=== PATIENT | female | born 1930 | race Caucasian/White ===

== ENCOUNTER 2017-11-09 19:21 | Observation (INO) | payer MEDICARE, BC ==
[2017-11-09] MEDS ORDERED: Sodium Chloride 0.9% 10 ML Syringe FLUSH PRN (19:38)
[2017-11-09] MEDS ORDERED: Ketorolac 30 MG/ML SDV IVPUSH ONE (19:38)
--- NOTE | 2017-11-09 19:38 | EDM.PDOC ---
ED HPI GENERAL MEDICAL PROBLEM - General Chief Complaint: Chest Pain Stated Complaint: [facility] Time Seen by Provider: 11/09/17 19:30 Source of Information: Reports: Patient, EMS, Old Records History Limitations: Reports: No Limitations - History of Present Illness INITIAL COMMENTS - FREE TEXT/NARRATIVE: 87 yo female was just sitting down for her evening meal when she developed anterior chest heaviness without any associated sx's. She then ate a good dinner and her pain was not changed so they called 911. She has had a pacemaker for many yrs, but no hx of CAD. EMS gave ASA 324 mg po and NTG x 2 SL with a reduction in her pain. Now it only hurts her if she moves or takes a full breath. Denies injury to her chest. Here with her . Is on warfarin and her INR about a week ago was 2.7 per her report. Seems more SOB with exertion than normal. Her reported late in her ER stay that he found her slumped over the counter, thinks she may have briefly passed out. Has had her pain since this event. Has a pHx of hiatal hernia repair. Onset: Today Onset Date: 11/09/17 Onset Time: 17:00 Duration: Hour(s): (2.5), Heavy Location: Reports: Chest Quality: Reports: Pressure Severity: Moderate Improves with: Reports: Medication Worsens with: Reports: Movement (and deep breathing) Context: Reports: Other (uncertain) Associated Symptoms: Reports: No Other Symptoms Treatments LADIES' HAT TRIMMER: Reports: Aspirin, IV/IO, Nitroglycerin Left Chest Pain Score (Numeric/FACES): 6 - Related Data Allergies Allergy/AdvReac Type Severity Reaction Status Date / Time morphine Allergy Cannot Verified 04/13/16 07:29 Remember Sulfa (Sulfonamide Allergy Rash Verified 04/13/16 07:29 Antibiotics) Home Meds: Home Meds Bumetanide [Bumex] 1 mg PO BID 11/02/12 [History] Lisinopril 20 mg PO BID 11/02/12 [History] Lovastatin 40 mg PO BEDTIME 11/02/12 [History] Warfarin Sodium [Jantoven] 2.5 mg PO ASDIRECTED 11/02/12 [History] Warfarin Sliding Scale [Coumadin Sliding Scale] 5 mg PO ASDIRECTED 02/26/14 [ History] Clobetasol [Clobetasol 0.05%] 1 dose TOP BID 03/25/15 [History] Cyanocobalamin (Vitamin B-12) [B-12] 1 tab PO DAILY 03/25/15 [History] Melatonin 1 tab PO BEDTIME 03/25/15 [History] Triamcinolone Acetonide [Triamcinolone Acetonide 0.1% Oint] 1 dose TOP BID 03/25 [History] Carvedilol 6.25 mg PO BID 01/28/16 [History] Past Medical History HEENT History: Reports: Cataract, Impaired Vision Cardiovascular History: Reports: Afib, Cardiomyopathy, Heart Failure, High Cholesterol, Hypertension, Pacemaker, Other (See Below) Other Cardiovascular History: mitral valve disorders Respiratory History: Reports: SOB, Other (See Below) Other Respiratory History: dyspnea with exertion. pulmonary hypertension. Gastrointestinal History: Reports: Chronic Diarrhea, Hiatal Hernia, Irritable Bowel Syndrome Genitourinary History: Reports: None MOLD SHAKER History: Reports: , Spontaneous Musculoskeletal History: Reports: Fracture, Gout, Osteoarthritis, Osteoporosis Psychiatric History: Reports: Panic Attack Endocrine/Metabolic History: Reports: Diabetes, Type II, Osteoporosis Hematologic History: Reports: Blood Transfusion(s) Oncologic (Cancer) History: Reports: Colon Dermatologic History: Reports: Eczema - Infectious Disease History Infectious Disease History: Reports: Chicken Pox, Measles, Mumps, Pertussis ( Whooping Cough) - Past Surgical History HEENT Surgical History: Reports: Cataract Surgery GI Surgical History: Reports: Appendectomy, Colon, Colonoscopy, EGD, Other (See Below) Female Surgical History: Reports: Section, D&C Musculoskeletal Surgical History: Reports: None Dermatological Surgical History: Reports: Skin Biopsy Social & Family History - Caffeine Use Caffeine Use: Reports: Coffee ED ROS GENERAL - Review of Systems Review Of Systems: See Below Constitutional: Reports: No Symptoms HEENT: Reports: No Symptoms Respiratory: Reports: No Symptoms Cardiovascular: Reports: Chest Pain Endocrine: Reports: No Symptoms GI/Abdominal: Reports: No Symptoms : Reports: No Symptoms Musculoskeletal: Reports: No Symptoms Skin: Reports: No Symptoms Neurological: Reports: No Symptoms ED EXAM, GENERAL - Physical Exam Exam: See Below Exam Limited By: No Limitations General Appearance: Alert, WD/WN, No Apparent Distress Eye Exam: Bilateral Eye: Normal Inspection Ears: Normal External Exam, Normal Canal, Hearing Grossly Normal Ear Exam: Bilateral Ear: Auricle Normal, Canal Normal Nose: Normal Inspection, Normal Mucosa, No Blood Throat/Mouth: Normal Inspection, Normal Lips, Normal Oropharynx, Normal Voice, No Airway Compromise Head: Atraumatic, Normocephalic Neck: Normal Inspection Respiratory/Chest: No Respiratory Distress, Lungs Clear, Normal Breath Sounds, No Accessory Muscle Use, Other (chest wall pain just to the left of the sternum) . No: Chest Non-Tender Cardiovascular: Regular Rate, Rhythm, No Edema GI/Abdominal: Normal Bowel Sounds, Soft, Non-Tender, No Distention Back Exam: Normal Inspection. No: CVA Tenderness (R), CVA Tenderness (L) Extremities: Normal Inspection, Normal Range of Motion, Non-Tender, No Pedal Edema Neurological: Alert, Oriented, CN II-XII Intact, Normal Cognition, No Motor/ Sensory Deficits Psychiatric: Normal Affect, Normal Mood Skin Exam: Warm, Dry, Intact, Normal Color, No Rash Lymphatic: No Adenopathy EKG INTERPRETATION EKG Date: 11/09/17 Time: 19:20 Rhythm: A-Flutter Rate (Beats/Min): 83 P-Wave: Absent ST-T: Normal Comparison: No Change Course - Vital Signs Last Recorded V/S: Last Vital Signs Temp 36.3 C 11/10/17 01:07 Pulse 70 11/10/17 01:26 Resp 18 11/10/17 01:26 BP 218/111 H 11/10/17 01:26 Pulse Ox 93 L 11/10/17 01:26 - Orders/Labs/Meds Orders: Active Orders 24 hr Category Date Time Status EKG Documentation Completion [RC] ASDIRECTED Care 11/09/17 20:28 Active Chest 1V Frontal [CR] Stat Exams 11/09/17 19:39 Taken Chest wo Cont [CT] Stat Exams 11/10/17 00:36 Taken Sodium Chloride 0.9% [Saline Flush] Med 11/09/17 19:38 Active 10 ml FLUSH ASDIRECTED PRN Saline Lock Insert [OM.PC] Routine Oth 11/09/17 19:38 Ordered EKG 12 Lead [EK] Routine Ther 11/09/17 20:28 Ordered Medication Orders Sodium Chloride (Saline Flush) 10 ml FLUSH ASDIRECTED PRN PRN Reason: Keep Vein Open Labs: Laboratory Tests 11/09/17 11/09/17 11/09/17 Range/Units 19:38 20:05 20:05 WBC 4.4 L (4.5-11.0) K/uL RBC 3.73 (3.30-5.50) M/uL Hgb 12.7 (12.0-15.0) g/dL Hct 39.2 (36.0-48.0) % MCV 105 H (80-98) fL MCH 34 H (27-31) pg MCHC 32 (32-36) % Plt Count 179 (150-400) K/uL PT (9.5-12.0) sec INR (0.80-1.20) D-Dimer, Quantitative 450 H (0.0-400.0) ng/mL Sodium 141 (140-148) mmol/L Potassium 4.0 (3.6-5.2) mmol/L Chloride 101 (100-108) mmol/L Carbon Dioxide 30 (21-32) mmol/L Anion Gap 10.2 (5.0-14.0) mmol/L BUN 28 H (7-18) mg/dL Creatinine 1.3 H (0.6-1.0) mg/dL Est Cr Clr Drug Dosing 21.90 mL/min Estimated GFR (MDRD) 39 L (>60) Glucose 126 H (74-106) mg/dL Calcium 8.6 (8.5-10.1) mg/dL Troponin I < 0.017 (0.000-0.056) ng/mL 11/09/17 11/09/17 Range/Units 20:05 22:30 WBC (4.5-11.0) K/uL RBC (3.30-5.50) M/uL Hgb (12.0-15.0) g/dL Hct (36.0-48.0) % MCV (80-98) fL MCH (27-31) pg MCHC (32-36) % Plt Count (150-400) K/uL PT 21.5 H (9.5-12.0) sec INR 2.03 H (0.80-1.20) D-Dimer, Quantitative (0.0-400.0) ng/mL Sodium (140-148) mmol/L Potassium (3.6-5.2) mmol/L Chloride (100-108) mmol/L Carbon Dioxide (21-32) mmol/L Anion Gap (5.0-14.0) mmol/L BUN (7-18) mg/dL Creatinine (0.6-1.0) mg/dL Est Cr Clr Drug Dosing mL/min Estimated GFR (MDRD) (>60) Glucose (74-106) mg/dL Calcium (8.5-10.1) mg/dL Troponin I < 0.017 (0.000-0.056) ng/mL Meds: Medications Generic Name Dose Route Start Last Admin Trade Name Freq PRN Reason Stop Dose Admin Sodium Chloride 10 ml 11/09/17 19:38 Saline Flush FLUSH ASDIRECTED PRN Keep Vein Open Discontinued Medications Generic Name Dose Route Start Last Admin Trade Name Freq PRN Reason Stop Dose Admin Acetaminophen 1,000 mg 11/09/17 21:17 11/09/17 21:25 Tylenol Extra Strength PO 11/09/17 21:18 1,000 mg ONETIME ONE Administration Carvedilol 12.5 mg 11/10/17 01:10 11/10/17 01:14 Coreg PO 11/10/17 01:11 12.5 mg ONETIME ONE Administration Clonidine HCl 0.1 mg 11/09/17 23:30 11/09/17 23:42 Catapres PO 11/09/17 23:31 0.1 mg ONETIME ONE Administration Ketorolac Tromethamine 15 mg 11/09/17 19:38 11/09/17 19:50 Toradol IVPUSH 11/09/17 19:39 15 mg ONETIME ONE Administration Oxycodone/Acetaminophen 1 tab 11/09/17 23:47 11/09/17 23:57 Percocet 325-5 Mg PO 11/09/17 23:48 1 tab ONETIME ONE Administration Warfarin Sodium 5 mg 11/09/17 21:18 11/09/17 21:25 Coumadin PO 11/09/17 21:19 5 mg ONETIME ONE Administration - Radiology Interpretation Free Text/Narrative:: CXR-no acute findings CT chest without contrast-neg CT Results Date: 11/10/17 Departure - Departure Time of Disposition: 01:50 Disposition: Refer to Observation Condition: Fair Clinical Impression: Chest pain of uncertain etiology HTN (hypertension) Qualifiers: Hypertension type: unspecified Qualified Code(s): I10 - Essential (primary) hypertension Instructions: Hypertension, [id number] Referrals: PCP,None [Primary Care Provider] - Forms: ED Department Discharge - My Orders Last 24 Hours: My Active Orders 11/09/17 19:38 Sodium Chloride 0.9% [Saline Flush] 10 ml FLUSH ASDIRECTED PRN Saline Lock Insert [OM.PC] Routine 11/09/17 19:39 Chest 1V Frontal [CR] Stat 11/09/17 20:28 EKG Documentation Completion [RC] ASDIRECTED EKG 12 Lead [EK] Routine 11/10/17 00:36 Chest wo Cont [CT] Stat - Assessment/Plan Last 24 Hours: My Active Orders 11/09/17 19:38 Sodium Chloride 0.9% [Saline Flush] 10 ml FLUSH ASDIRECTED PRN Saline Lock Insert [OM.PC] Routine 11/09/17 19:39 Chest 1V Frontal [CR] Stat 11/09/17 20:28 EKG Documentation Completion [RC] ASDIRECTED EKG 12 Lead [EK] Routine 11/10/17 00:36 Chest wo Cont [CT] Stat
[2017-11-09] MEDS ORDERED: Acetaminophen 500 MG Tab PO ONE (21:17)
[2017-11-09] MEDS ORDERED: Warfarin 5 MG Tab PO ONE (21:18)
[2017-11-09] MEDS ORDERED: cloNIDine 0.1 MG Tab PO ONE (23:30)
[2017-11-09] MEDS ORDERED: Acetaminophen/oxyCODONE 325-5 MG Tab PO ONE (23:47)
[2017-11-10] MEDS ORDERED: Carvedilol 12.5 MG Tab PO ONE (01:10)
[2017-11-10] MEDS ORDERED: Ondansetron 4 MG/2 ML SDV IVPUSH ONE (02:14)
--- NOTE | 2017-11-10 02:36 | PCM.HP ---
H&P History of Present Illness - General Date of Service: 11/09/17 Admit Problem/Dx: Admission Diagnosis/Problem Admission Diagnosis/Problem Chest pain of uncertain etiology Source of Information: Patient, Family ( and 2 Daughters) History Limitations: Reports: No Limitations - History of Present Illness Initial Comments - Free Text/Narative: 87 yo female was just sitting down for her evening meal when she developed anterior chest heaviness without any associated sx's. She then ate a good dinner and her pain was not changed so they called 911. She has had a pacemaker for many yrs, but no hx of CAD. EMS gave ASA 324 mg po and NTG x 2 SL with a reduction in her pain. Now it only hurts her if she moves or takes a full breath. Denies injury to her chest. Here with her . Is on warfarin and her INR about a week ago was 2.7 per her report. Seems more SOB with exertion than normal. Her reported late in her ER stay that he found her slumped over the counter, thinks she may have briefly passed out. Has had her pain since this event. Has a pHx of hiatal hernia repair. Onset: Today at 5:oopm Onset of Symptoms: Reports: Sudden Symptom Onset Date: 11/09/17 Symptom Onset Time: 17:00 Duration of Symptoms: Reports: Hour(s):, Waxing/Waning Location: Reports: Chest (chest wall pain and shortness of breath when sitting upright) Quality: Reports: Ache Severity: Mild Improves with: Reports: Medication Worsens with: Reports: Movement Context: Reports: Trauma (fell against a counter at home on ) Associated Symptoms: Reports: Shortness of Breath (when sitting upright) Left Chest Pain Score (Numeric/FACES): 6 - Related Data Allergies/Adverse Reactions: Allergies Allergy/AdvReac Type Severity Reaction Status Date / Time morphine Allergy Cannot Verified 04/13/16 07:29 Remember Sulfa (Sulfonamide Allergy Rash Verified 04/13/16 07:29 Antibiotics) Home Medications: Home Meds Bumetanide [Bumex] 1 mg PO BID 11/02/12 [History] Lisinopril 20 mg PO BID 11/02/12 [History] Lovastatin 40 mg PO BEDTIME 11/02/12 [History] Warfarin Sodium [Jantoven] 2.5 mg PO ASDIRECTED 11/02/12 [History] Warfarin Sliding Scale [Coumadin Sliding Scale] 5 mg PO ASDIRECTED 02/26/14 [ History] Clobetasol [Clobetasol 0.05%] 1 dose TOP BID 03/25/15 [History] Cyanocobalamin (Vitamin B-12) [B-12] 1 tab PO DAILY 03/25/15 [History] Melatonin 1 tab PO BEDTIME 03/25/15 [History] Triamcinolone Acetonide [Triamcinolone Acetonide 0.1% Oint] 1 dose TOP BID 03/25 [History] Carvedilol 6.25 mg PO BID 01/28/16 [History] Past Medical History HEENT History: Reports: Cataract, Impaired Vision Cardiovascular History: Reports: Afib, Cardiomyopathy, Heart Failure, High Cholesterol, Hypertension, Pacemaker, Other (See Below) Other Cardiovascular History: mitral valve disorders Respiratory History: Reports: SOB, Other (See Below) Other Respiratory History: dyspnea with exertion. pulmonary hypertension. 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: Reports: , Spontaneous Musculoskeletal History: Reports: Fracture, Gout, Osteoarthritis, Osteoporosis Psychiatric History: Reports: Panic Attack Endocrine/Metabolic History: Reports: Diabetes, Type II, Osteoporosis Hematologic History: Reports: Blood Transfusion(s) Oncologic (Cancer) History: Reports: Colon Dermatologic History: Reports: Eczema - Infectious Disease History Infectious Disease History: Reports: Chicken Pox, Measles, Mumps, Pertussis ( Whooping Cough) - Past Surgical History HEENT Surgical History: Reports: Cataract Surgery GI Surgical History: Reports: Appendectomy, Colon, Colonoscopy, EGD, Other (See Below) Female Surgical History: Reports: Section, D&C Musculoskeletal Surgical History: Reports: None Dermatological Surgical History: Reports: Skin Biopsy Social & Family History - Tobacco Use Smoking Status *Q: Never Smoker - Caffeine Use Caffeine Use: Reports: Coffee - Alcohol Use Days Per Week of Alcohol Use: 7 Number of Drinks Per Day: 2 Total Drinks Per Week: 14 - Recreational Drug Use Recreational Drug Use: No - Living Situation & Occupation Living situation: Reports: Occupation: Retired (lives with of 66 years in own home [facility]. has 4 children.) H&P Review of Systems - Review of Systems: Review Of Systems: See Below General: Reports: Other (chest wall pain and shortness of breath when sitting upright) HEENT: Reports: Glasses Pulmonary: Reports: Shortness of Breath (only when sitting upright), Pleuritic Chest Pain (only when sitting upright) Cardiovascular: Reports: Blood Pressure Problem Gastrointestinal: Reports: Nausea Genitourinary: Reports: No Symptoms Musculoskeletal: Reports: No Symptoms Skin: Reports: No Symptoms Psychiatric: Reports: No Symptoms Neurological: Reports: No Symptoms Hematologic/Lymphatic: Reports: No Symptoms Immunologic: Reports: No Symptoms Exam - Exam Exam: See Below - Vital Signs Vital Signs: Last Vital Signs Temp 36.3 C 11/10/17 01:07 Pulse 70 11/10/17 02:25 Resp 18 11/10/17 02:25 BP 194/93 H 11/10/17 02:25 Pulse Ox 91 L 11/10/17 02:25 Weight: 66.678 kg - Exam Quality Assessment: DVT Prophylaxis, Other (IV fluids) General: Alert, Oriented, 4 HEENT: PERRLA, Hearing Intact, Mucosa Moist & [place], Nares Patent, Normal Nasal Septum, Posterior Pharynx Clear, Conjunctiva Clear, EOMI, EACs Clear, TMs Clear Neck: Supple, Trachea Midline, 2 Lungs: Clear to Auscultation, Normal Respiratory Effort Cardiovascular: Regular Rate, Regular Rhythm GI/Abdominal Exam: Normal Bowel Sounds, Soft, Non-Tender, No Organomegaly, No Distention, No Abnormal Bruit, No Mass, Pelvis Stable Back Exam: Normal Inspection, Full Range of Motion, NT Extremities: Normal Inspection, Normal Range of Motion, Non-Tender, No Pedal Edema, Normal Capillary Refill Peripheral Pulses: 2+: Radial (L), Radial (R) Skin: Warm, Dry, Intact Neurological: Cranial Nerves Intact, Reflexes Equal Bilateral, Strength Equal Bilateral, Normal Speech, Normal Tone Neuro Extensive - Mental Status: Alert, Oriented x3, Normal Mood/Affect, Normal Cognition Neuro Extensive - Motor, Sensory, Reflexes: CN II-XII Intact Psychiatric: Alert, Normal Affect, Normal Mood - Patient Data Lab Results Last 24 hrs: Laboratory Results - last 24 hr 11/09/17 11/09/17 11/09/17 Range/Units 19:38 20:05 20:05 WBC 4.4 L (4.5-11.0) K/uL RBC 3.73 (3.30-5.50) M/uL Hgb 12.7 (12.0-15.0) g/dL Hct 39.2 (36.0-48.0) % MCV 105 H (80-98) fL MCH 34 H (27-31) pg MCHC 32 (32-36) % Plt Count 179 (150-400) K/uL PT (9.5-12.0) sec INR (0.80-1.20) D-Dimer, Quantitative 450 H (0.0-400.0) ng/mL Sodium 141 (140-148) mmol/L Potassium 4.0 (3.6-5.2) mmol/L Chloride 101 (100-108) mmol/L Carbon Dioxide 30 (21-32) mmol/L Anion Gap 10.2 (5.0-14.0) mmol/L BUN 28 H (7-18) mg/dL Creatinine 1.3 H (0.6-1.0) mg/dL Est Cr Clr Drug Dosing 21.90 mL/min Estimated GFR (MDRD) 39 L (>60) Glucose 126 H (74-106) mg/dL Calcium 8.6 (8.5-10.1) mg/dL Troponin I < 0.017 (0.000-0.056) ng/mL 11/09/17 11/09/17 Range/Units 20:05 22:30 WBC (4.5-11.0) K/uL RBC (3.30-5.50) M/uL Hgb (12.0-15.0) g/dL Hct (36.0-48.0) % MCV (80-98) fL MCH (27-31) pg MCHC (32-36) % Plt Count (150-400) K/uL PT 21.5 H (9.5-12.0) sec INR 2.03 H (0.80-1.20) D-Dimer, Quantitative (0.0-400.0) ng/mL Sodium (140-148) mmol/L Potassium (3.6-5.2) mmol/L Chloride (100-108) mmol/L Carbon Dioxide (21-32) mmol/L Anion Gap (5.0-14.0) mmol/L BUN (7-18) mg/dL Creatinine (0.6-1.0) mg/dL Est Cr Clr Drug Dosing mL/min Estimated GFR (MDRD) (>60) Glucose (74-106) mg/dL Calcium (8.5-10.1) mg/dL Troponin I < 0.017 (0.000-0.056) ng/mL Result Diagrams: 11/09/17 19:38 11/09/17 20:05 - Problem List (1) Chest pain of uncertain etiology SNOMED Code(s): 93819883 ICD Code: R07.89 - OTHER CHEST PAIN Status: Acute Priority: High Current Visit: Yes (2) HTN (hypertension) SNOMED Code(s): 76675114 ICD Code: I10 - ESSENTIAL (PRIMARY) HYPERTENSION Status: Acute Priority: High Current Visit: Yes Qualifiers: Hypertension type: essential hypertension Qualified Code(s): I10 - Essential (primary) hypertension Problem List Initiated/Reviewed/Updated: Yes Orders Last 24hrs: Active Orders 24 hr Category Date Time Status Patient Status Manage Transfer [TRANSFER] Routine ADT 11/10/17 02:15 Ordered EKG Documentation Completion [RC] ASDIRECTED Care 11/09/17 20:28 Active Chest 1V Frontal [CR] Stat Exams 11/09/17 19:39 Taken Chest wo Cont [CT] Stat Exams 11/10/17 00:36 Taken Sodium Chloride 0.9% [Saline Flush] Med 11/09/17 19:38 Active 10 ml FLUSH ASDIRECTED PRN Saline Lock Insert [OM.PC] Routine Oth 11/09/17 19:38 Ordered Resuscitation Status Routine Resus Stat 11/10/17 02:17 Ordered EKG 12 Lead [EK] Routine Ther 11/09/17 20:28 Ordered Medication Orders Sodium Chloride (Saline Flush) 10 ml FLUSH ASDIRECTED PRN PRN Reason: Keep Vein Open Assessment/Plan Comment:: ASSESSMENT / PLAN - 87 yo female was just sitting down for her evening meal when she developed anterior chest heaviness without any associated sx's. She then ate a good dinner and her pain was not changed so they called 911. She has had a pacemaker for many yrs, but no hx of CAD. EMS gave ASA 324 mg po and NTG x 2 SL with a reduction in her pain. Now it only hurts her if she moves or takes a full breath. Denies injury to her chest. Here with her . Is on warfarin and her INR about a week ago was 2.7 per her report. Seems more SOB with exertion than normal. Her , Valentino reported late in her ER stay that he found her slumped over the counter, thinks she may have briefly passed out. Has had her pain since this event. Has a pHx of hiatal hernia repair. HX of Afib. Onset: Today ER work up includes CT chest, chest xray, CBC, Chemistry panel, Troponin, no acute findings. Medications Clonidine 0.1mg and Coreg 12.5mg for hypertension. Given Percocet for pain, which did decrease her pain. Due to continue chest pain and shortness of breath when sitting upright, will admit to observation to monitor for further symptoms. Chest Pain uncertain etiology Hypertension -Admit to [address] [place] [address] for further monitoring -Telemetry -Oxygen per nasal cannula -IV fluids for rehydration NS at 100 mL per hour -Advise to notify nurses of any chest pain or other symptoms -And a.m. labs: CBC, BMP. INR, PT Maintenance issues -Orders home meds: order -Nutrition: Regular diet -Aaron catheter not indicated at this time -DVT: Coumadin -GI Prophalaxis; Protonix 40mg daily CODE STATUS: DNR/DNI Admission status: Admit to Observation -I expect this patient to stay less than 24 hours, not to exceed 96 hours for evaluation and management of this problem. Disposition: home with family Primary care provider: [facility] Hospitalist: Dr. Johnson
[2017-11-10] MEDS ORDERED: Non-Formulary Medication 1 Each (Melatonin [Melatonin] 1 TAB) PO SCH (02:37)
[2017-11-10] MEDS ORDERED: Ibuprofen 400 MG Tab PO PRN (02:37)
[2017-11-10] MEDS ORDERED: Sodium Chloride 0.9% 1,000 ML IV SCH (02:37)
[2017-11-10] MEDS ORDERED: Warfarin Sliding Scale PO SCH (02:37)
[2017-11-10] MEDS ORDERED: Warfarin 2.5 MG Tab PO SCH (02:37)
[2017-11-10] MEDS ORDERED: LISINOPRIL 20 MG PO SCH (02:37)
[2017-11-10] MEDS ORDERED: Docusate Sodium 100 MG Cap PO PRN (02:37)
[2017-11-10] MEDS ORDERED: Acetaminophen 325 MG Tab PO PRN (02:37)
[2017-11-10] MEDS ORDERED: Acetaminophen/oxyCODONE 325-5 MG Tab PO PRN (02:37)
[2017-11-10] MEDS ORDERED: Ondansetron 4 MG Tab.DIS PO PRN (02:37)
[2017-11-10] MEDS ORDERED: LORazepam 2 MG/ML SDV IV PRN (02:37)
[2017-11-10] MEDS ORDERED: Albuterol 0.083% 2.5 MG/3 ML Neb Soln NEB PRN (02:37)
[2017-11-10] MEDS ORDERED: Pantoprazole 40 MG Tab.CR PO SCH (07:30)
--- NOTE | 2017-11-10 08:57 | CR ---
Chest 1V Frontal HISTORY: chest pain COMPARISON: 03/09/2010 FINDINGS: Mild cardiomegaly is redemonstrated. No vascular redistribution or pleural fluid is seen. T here is atherosclerotic calcification in the aortic arch. No acute infiltrate is identified. Pacemake r generator overlies the left mid chest laterally. Atrial and ventricular lead wires are stable. Marcie cleveland the exam is unchanged. IMPRESSION: Mild cardiomegaly without evidence for decompensation. Atherosclerotic aorta. Stable pace maker and lead wires. No other acute chest abnormality or significant interval change is identified.
[2017-11-10] MEDS ORDERED: BUMETANIDE 1 MG PO SCH (09:00)
[2017-11-10] MEDS ORDERED: Clobetasol 0.05% Crm 30 GM Tube TOP SCH ×2 (09:00)
[2017-11-10] MEDS ORDERED: Cyanocobalamin (Vitamin B12) 1,000 MCG Tab PO SCH (09:00)
[2017-11-10] MEDS ORDERED: Triamcinolone Acetonide 0.1% Oint 15 GM Tube TOP SCH ×2 (09:00)
[2017-11-10] MEDS ORDERED: CARVEDILOL 6.25 MG PO SCH (09:00)
--- NOTE | 2017-11-10 11:26 | PCM.DCSUM1 ---
Discharge Summary - Hospital Course Brief History: 87-year-old female with history of atrial fibrillation, coronary artery disease, diabetes and colon cancer who presented with sudden onset of anterior chest pain. She was admitted for observation for additional pain control and blood pressure monitoring. Diagnosis: Stroke: No - Discharge Data Discharge Date: 11/10/17 Discharge Disposition: Home, Self-Care 01 Condition: Good - Discharge Diagnosis/Problem(s) (1) Non-cardiac chest pain SNOMED Code(s): 939613921 ICD Code: R07.89 - OTHER CHEST PAIN Status: Acute Current Visit: Yes (2) HTN (hypertension) SNOMED Code(s): 22511328 ICD Code: I10 - ESSENTIAL (PRIMARY) HYPERTENSION Status: Acute Priority: High Current Visit: Yes Qualifiers: Hypertension type: essential hypertension Qualified Code(s): I10 - Essential (primary) hypertension - Patient Summary/Data Hospital Course: Elizabet presented to the emergency room last night with acute onset of chest discomfort after supper. Workup in the emergency room was largely unremarkable including 2 troponin levels, and EKG as well as a chest x-ray and a CT scan of the chest. Patient continued to have significant pain with any sort of position change such as going from laying to sitting so she was admitted for observation. Initially the cause for her pain was not entirely clear but after more discussion with the patient and her , they report that she had a near syncopal episode and struck her anterior chest on the counter a couple of days ago. They're wondering if maybe this contributed to her pain. She points to an area of her chest and thinks that this is exactly where the edge of the counter head. Her pain is dramatically improved today without any sort of intervention since admission. Vital signs have all been stable. Her blood pressures in the emergency room were noted to be elevated to near 200 systolic but have trended down since that time. I suspect the blood pressure elevation was a combination of pain that field anxiety which further fueled rises in the blood pressure and then additional anxiety. No medication changes were made during the hospital stay. The patient is nearly pain-free at this point and safe for discharge home. Also mentioned during the discharge process was episodes of fatigue that seemed to occur between 11 AM and 12 PM. The reports that the patient is very busy in the morning doing housework as well as cooking and cleaning. Around 11: 00 she becomes very tired and occasionally becomes confused. She usually takes a nap and is back to normal afterwards. I suspect this is probably more fatigue related than anything. She is on some medications that could lead to fatigue. She is normal and the afternoon. No specific symptoms to raise red flags. I encouraged her to slow down just a little bit and transferred her workout throughout the day rather than doing it all in the morning. She will be following up with her primary care physician in one to 2 weeks. She will be due for follow-up colonoscopy testing with her previous colon cancer. - Patient Instructions Diet: Heart Healthy Diet Activity: As Tolerated Showering/Bathing: May Shower Notify Provider of: Fever, Increased Pain, Nausea and/or Vomiting Other/Special Instructions: 1. You were in the hospital for observation after an episode of chest pain that I think was related to trauma to the anterior chest. During the emergency room stay you were noted to have accelerated hypertension and were admitted for observation. I would recommend using acetaminophen as needed for pain and you could consider using a heating pad to help with the painful areas across your chest. We do not need to make any medication changes at this time. Your blood pressure has normalized without any specific intervention. 2. Continue your usual home medications as previously prescribed. 3. Follow up with Dr Lewis next week as scheduled next week and Dr Cárdenas in two weeks. 4. Seek medical attention if you develop fever greater than 101, you have severe pain or if you develop sudden onset of shortness of breath. - Discharge Plan *PRESCRIPTION DRUG MONITORING PROGRAM REVIEWED*: Not Applicable *COPY OF PRESCRIPTION DRUG MONITORING REPORT IN PATIENT VICTORINA: Not Applicable Home Medications: Home Meds Bumetanide [Bumex] 1 mg PO BID 11/02/12 [History] Lisinopril 20 mg PO BID 11/02/12 [History] Lovastatin 40 mg PO BEDTIME 11/02/12 [History] Warfarin Sodium [Jantoven] 2.5 mg PO ASDIRECTED 11/02/12 [History] Warfarin Sliding Scale [Coumadin Sliding Scale] 5 mg PO ASDIRECTED 02/26/14 [ History] Clobetasol [Clobetasol 0.05%] 1 dose TOP BID 03/25/15 [History] Cyanocobalamin (Vitamin B-12) [B-12] 1 tab PO DAILY 01/27/16 [History] Melatonin 1 tab PO BEDTIME 03/25/15 [History] Triamcinolone Acetonide [Triamcinolone Acetonide 0.1% Oint] 1 dose TOP BID 03/25 [History] Carvedilol 6.25 mg PO BID 01/28/16 [History] Patient Handouts: Nonspecific Chest Pain, Okio-gw-[id number], Hypertension, Easy-to- Read Referrals: Marcus Cárdenas MD [Physician] - 11/17/17 11:00 am (2 weeks - f/u hospital stay for chest pain and episodes of fatigue) Luis Manuel Lewis MD [Ordering Only Provider] - 11/14/17 9:00 am - Discharge Summary/Plan Comment DC Time >30 min.: No - Patient Data Vitals - Most Recent: Last Vital Signs Temp 35.6 C 11/10/17 07:00 Pulse 71 11/10/17 07:00 Resp 14 11/10/17 07:00 BP 158/75 H 11/10/17 07:00 Pulse Ox 94 L 11/10/17 07:54 Weight - Most Recent: 67.9 kg I&O - Last 24 hours: Intake & Output 11/09/17 11/10/17 11/10/17 22:59 06:59 14:59 Output Total 100 150 Balance -100 -150 Lab Results - Last 24 hrs: Laboratory Results - last 24 hr 11/09/17 11/09/17 11/09/17 Range/Units 19:38 20:05 20:05 WBC 4.4 L (4.5-11.0) K/uL RBC 3.73 (3.30-5.50) M/uL Hgb 12.7 (12.0-15.0) g/dL Hct 39.2 (36.0-48.0) % MCV 105 H (80-98) fL MCH 34 H (27-31) pg MCHC 32 (32-36) % Plt Count 179 (150-400) K/uL Neut % (Auto) (36-66) % Lymph % (Auto) (24-44) % Garrett % (Auto) (2-6) % Eos % (Auto) (2-4) % Baso % (Auto) (0-1) % PT (9.5-12.0) sec INR (0.80-1.20) D-Dimer, Quantitative 450 H (0.0-400.0) ng/mL Sodium 141 (140-148) mmol/L Potassium 4.0 (3.6-5.2) mmol/L Chloride 101 (100-108) mmol/L Carbon Dioxide 30 (21-32) mmol/L Anion Gap 10.2 (5.0-14.0) mmol/L BUN 28 H (7-18) mg/dL Creatinine 1.3 H (0.6-1.0) mg/dL Est Cr Clr Drug Dosing 21.90 mL/min Estimated GFR (MDRD) 39 L (>60) Glucose 126 H (74-106) mg/dL Calcium 8.6 (8.5-10.1) mg/dL Troponin I < 0.017 (0.000-0.056) ng/mL 11/09/17 11/09/17 11/10/17 Range/Units 20:05 22:30 05:11 WBC 6.7 (4.5-11.0) K/uL RBC 3.43 (3.30-5.50) M/uL Hgb 12.2 (12.0-15.0) g/dL Hct 35.4 L (36.0-48.0) % MCV 103 H (80-98) fL MCH 36 H (27-31) pg MCHC 35 (32-36) % Plt Count 162 (150-400) K/uL Neut % (Auto) 65 (36-66) % Lymph % (Auto) 23 L (24-44) % Garrett % (Auto) 10 H (2-6) % Eos % (Auto) 2 (2-4) % Baso % (Auto) 0 (0-1) % PT 21.5 H (9.5-12.0) sec INR 2.03 H (0.80-1.20) D-Dimer, Quantitative (0.0-400.0) ng/mL Sodium (140-148) mmol/L Potassium (3.6-5.2) mmol/L Chloride (100-108) mmol/L Carbon Dioxide (21-32) mmol/L Anion Gap (5.0-14.0) mmol/L BUN (7-18) mg/dL Creatinine (0.6-1.0) mg/dL Est Cr Clr Drug Dosing mL/min Estimated GFR (MDRD) (>60) Glucose (74-106) mg/dL Calcium (8.5-10.1) mg/dL Troponin I < 0.017 (0.000-0.056) ng/mL 11/10/17 11/10/17 Range/Units 05:11 05:11 WBC (4.5-11.0) K/uL RBC (3.30-5.50) M/uL Hgb (12.0-15.0) g/dL Hct (36.0-48.0) % MCV (80-98) fL MCH (27-31) pg MCHC (32-36) % Plt Count (150-400) K/uL Neut % (Auto) (36-66) % Lymph % (Auto) (24-44) % Garrett % (Auto) (2-6) % Eos % (Auto) (2-4) % Baso % (Auto) (0-1) % PT 24.9 H (9.5-12.0) sec INR 2.38 H (0.80-1.20) D-Dimer, Quantitative (0.0-400.0) ng/mL Sodium 135 L (140-148) mmol/L Potassium 4.9 (3.6-5.2) mmol/L Chloride 99 L (100-108) mmol/L Carbon Dioxide 28 (21-32) mmol/L Anion Gap 12.9 (5.0-14.0) mmol/L BUN 36 H (7-18) mg/dL Creatinine 1.4 H (0.6-1.0) mg/dL Est Cr Clr Drug Dosing 20.33 mL/min Estimated GFR (MDRD) 36 L (>60) Glucose 101 (74-106) mg/dL Calcium 8.6 (8.5-10.1) mg/dL Troponin I (0.000-0.056) ng/mL Med Orders - Current: Current Medications Acetaminophen (Tylenol) 650 mg PO Q4H PRN PRN Reason: Pain (Mild 1-3)/fever Albuterol (Proventil Neb Soln) 2.5 mg NEB Q4H PRN PRN Reason: Shortness Of Breath/wheezing Bumetanide (Bumex) 1 mg PO BID BARRY Carvedilol (Coreg) 6.25 mg PO BID ON LICENSE OF [facility] Clobetasol Propionate (Clobetasol 0.05%) 0 gm TOP BID ON LICENSE OF [facility] Cyanocobalamin (Vitamin B12) 1,000 mcg PO DAILY ON LICENSE OF [facility] Docusate Sodium (Colace) 100 mg PO BID PRN PRN Reason: Constipation Sodium Chloride (Normal Saline) 1,000 mls @ 100 mls/hr IV ASDIRECTED ON LICENSE OF [facility] Last Admin: 11/10/17 03:36 Dose: 100 mls/hr Ibuprofen (Motrin) 400 mg PO Q6H PRN PRN Reason: Pain (mild 1-3) Lisinopril (Prinivil) 20 mg PO BID ON LICENSE OF [facility] Last Admin: 11/10/17 04:07 Dose: Not Given Lorazepam (Ativan) 0 mg IV Q6H PRN PRN Reason: Nausea/Vomiting Melatonin (Melatonin) 4.5 mg PO BEDTIME ON LICENSE OF [facility] Ondansetron HCl (Zofran Odt) 4 mg PO Q6H PRN PRN Reason: Nausea able to take PO Oxycodone/Acetaminophen (Percocet 325-5 Mg) 1 tab PO Q4H PRN PRN Reason: Pain (moderate 4-6) Pantoprazole Sodium (Protonix) 40 mg PO ACBREAKFAST ON LICENSE OF [facility] Lovastatin 40mg ( (Ptom)) 0 each PO BEDTIME ON LICENSE OF [facility] Sodium Chloride (Saline Flush) 10 ml FLUSH ASDIRECTED PRN PRN Reason: Keep Vein Open Triamcinolone Acetonide (Triamcinolone Acetonide 0.1% Oint) 0 gm TOP BID ON LICENSE OF [facility] Warfarin Sodium (Coumadin) 2.5 mg PO MoWeSa@1300 ON LICENSE OF [facility] Warfarin Sodium (Coumadin) 5 mg PO SuTuThFr@1300 ON LICENSE OF [facility] Discontinued Medications Acetaminophen (Tylenol Extra Strength) 1,000 mg PO ONETIME ONE Stop: 11/09/17 21:18 Last Admin: 11/09/17 21:25 Dose: 1,000 mg Carvedilol (Coreg) 12.5 mg PO ONETIME ONE Stop: 11/10/17 01:11 Last Admin: 11/10/17 01:14 Dose: 12.5 mg Clonidine HCl (Catapres) 0.1 mg PO ONETIME ONE Stop: 11/09/17 23:31 Last Admin: 11/09/17 23:42 Dose: 0.1 mg Ketorolac Tromethamine (Toradol) 15 mg IVPUSH ONETIME ONE Stop: 11/09/17 19:39 Last Admin: 11/09/17 19:50 Dose: 15 mg Lovastatin (Mevacor) 40 mg PO BEDTIME ON LICENSE OF [facility] Non-Formulary Medication (Lovastatin [Lovastatin]) 40 mg PO BEDTIME ON LICENSE OF [facility] Non-Formulary Medication (Melatonin [Melatonin]) 1 tab PO BEDTIME ON LICENSE OF [facility] Last Admin: 11/10/17 04:07 Dose: Not Given Ondansetron HCl (Zofran) 4 mg IVPUSH ONETIME ONE Stop: 11/10/17 02:15 Last Admin: 11/10/17 02:18 Dose: 4 mg Oxycodone/Acetaminophen (Percocet 325-5 Mg) 1 tab PO ONETIME ONE Stop: 11/09/17 23:48 Last Admin: 11/09/17 23:57 Dose: 1 tab Warfarin Sodium (Coumadin) 5 mg PO ONETIME ONE Stop: 11/09/17 21:19 Last Admin: 11/09/17 21:25 Dose: 5 mg Warfarin Sodium (Coumadin) 2.5 mg PO ASDIRECTED ON LICENSE OF [facility] Warfarin Sodium (Coumadin) 5 mg PO SuTuFr@1300 BARRY - Exam Quality Assessment: Denies: Supplemental Oxygen General: Reports: Alert, Oriented, Cooperative, No Acute Distress Lungs: Reports: Normal Respiratory Effort Cardiovascular: Reports: Regular Rate, Regular Rhythm GI/Abdominal Exam: Soft, No Distention Psy/Mental Status: Reports: Alert, Normal Affect
[2017-11-10 11:35] VITALS: BP 135/60
[2017-11-10] MEDS ORDERED: WARFARIN 2.5 MG PO SCH (13:00)
[2017-11-10] MEDS ORDERED: Warfarin 5 MG Tab PO SCH (13:00)
[2017-11-10] MEDS ORDERED: LOVASTATIN 40 MG PO SCH (21:00)
[2017-11-10] MEDS ORDERED: Non-Formulary Medication 1 Each (Lovastatin [Lovastatin] 40 MG) PO SCH (21:00)
[2017-11-10] MEDS ORDERED: Melatonin 3 MG Tab PO SCH (21:00)
[2017-11-11] MEDS ORDERED: WARFARIN 2.5 MG PO SCH (13:00)
== END 2017-11-10 12:10 | disposition home or self-care (01) ==
LOC: JP.ED 19:21 → JP.MS 11-10 02:37
PROVIDERS: ADMIT Internal Medicine; ATTEND Internal Medicine
DX: R07.89 Other chest pain (principal); I11.0 Hypertensive heart disease with heart failure; I50.9 Heart failure, unspecified; E11.9 Type 2 diabetes mellitus without complications; I25.2 Old myocardial infarction; E78.00 Pure hypercholesterolemia, unspecified; Z79.01 Long term (current) use of anticoagulants; Z79.899 Other long term (current) drug therapy; Z88.5 Allergy status to narcotic agent; Z88.2 Allergy status to sulfonamides; Z95.0 Presence of cardiac pacemaker
CPT/HCPCS: 36415; 71045; 71250; 80048; 84484; 85025; 85027; 85379; 85610; 93005; 96374; 99236; 99285; A9270; J1885; J2405; J7030

== ENCOUNTER 2018-03-24 09:41 | Emergency (ER) | payer MEDICARE, BC ==
[2018-03-24 10:38] VITALS: BP 177/97
--- NOTE | 2018-03-24 11:08 | EDM.PDOC ---
ED HPI GENERAL MEDICAL PROBLEM - General Chief Complaint: Back Pain or Injury Stated Complaint: FALL, BACK PAIN Time Seen by Provider: 03/24/18 10:24 Source of Information: Reports: Patient History Limitations: Reports: No Limitations - History of Present Illness INITIAL COMMENTS - FREE TEXT/NARRATIVE: This lady was walking down the stairs in her house at about 5 AM today. She was wearing socks and somehow she slipped on the stairs and fell backwards. She struck her back against one of the risers. She complains of pain to the right side of her back generally in the right posterior axillary line at about the level of the lower part of the scapula. She was able to get up and walk. She's able to breathe without any problems. It just hurts to move. There is no pain actually to the spine area. Middle Back Pain Score (Numeric/FACES): 8 - Related Data Allergies Allergy/AdvReac Type Severity Reaction Status Date / Time morphine Allergy Cannot Verified 03/24/18 10:00 Remember Sulfa (Sulfonamide Allergy Rash Verified 03/24/18 10:00 Antibiotics) Home Meds: Home Meds Bumetanide [Bumex] 1 mg PO BID 11/02/12 [History] Lisinopril 20 mg PO BID 11/02/12 [History] Lovastatin 40 mg PO BEDTIME 11/02/12 [History] Warfarin Sodium [Jantoven] 2.5 mg PO ASDIRECTED 11/02/12 [History] Warfarin Sliding Scale [Coumadin Sliding Scale] 5 mg PO ASDIRECTED 02/26/14 [ History] Clobetasol [Clobetasol 0.05%] 1 dose TOP BID 03/25/15 [History] Cyanocobalamin (Vitamin B-12) [B-12] 1 tab PO DAILY 03/25/15 [History] Melatonin 1 tab PO BEDTIME 03/25/15 [History] Triamcinolone Acetonide [Triamcinolone Acetonide 0.1% Oint] 1 dose TOP BID 03/25 [History] Carvedilol 6.25 mg PO BID 01/28/16 [History] Past Medical History HEENT History: Reports: Cataract, Impaired Vision Cardiovascular History: Reports: Afib, Cardiomyopathy, Heart Failure, High Cholesterol, Hypertension, Pacemaker, Other (See Below) Other Cardiovascular History: mitral valve disorders Respiratory History: Reports: SOB, Other (See Below) Other Respiratory History: dyspnea with exertion. pulmonary hypertension. Gastrointestinal History: Reports: Chronic Diarrhea, Hiatal Hernia, Irritable Bowel Syndrome Genitourinary History: Reports: None [employer] History: Reports: , Spontaneous Musculoskeletal History: Reports: Fracture, Gout, Osteoarthritis, Osteoporosis Psychiatric History: Reports: Panic Attack Endocrine/Metabolic History: Reports: Osteoporosis Hematologic History: Reports: Anticoagulation Therapy, Blood Transfusion(s) Oncologic (Cancer) History: Reports: Colon Dermatologic History: Reports: Eczema - Infectious Disease History Infectious Disease History: Reports: Chicken Pox, Measles, Mumps, Pertussis ( Whooping Cough), Rheumatic Fever, Rubella - Past Surgical History Head Surgeries/Procedures: Reports: None HEENT Surgical History: Reports: Cataract Surgery Cardiovascular Surgical History: Reports: Pacer Respiratory Surgical History: Reports: None GI Surgical History: Reports: Appendectomy, Colon, Colonoscopy, EGD, Other (See Below) Other GI Surgeries/Procedures: colon resection Female Surgical History: Reports: Section, D&C Endocrine Surgical History: Reports: None Musculoskeletal Surgical History: Reports: None Oncologic Surgical History: Reports: None Dermatological Surgical History: Reports: Skin Biopsy Social & Family History - Family History Family Medical History: Noncontributory - Tobacco Use Smoking Status *Q: Never Smoker Second Hand Smoke Exposure: No - Caffeine Use Caffeine Use: Reports: Coffee Caffeine Use Comment: one cup/day - Recreational Drug Use Recreational Drug Use: No - Living Situation & Occupation Living situation: Reports: Occupation: Retired (lives with of 66 years in own home [facility]. has 4 children.) ED ROS GENERAL - Review of Systems Review Of Systems: ROS reveals no pertinent complaints other than HPI. ED EXAM, UPPER BACK/NECK PAIN - Physical Exam Exam: See Below Exam Limited By: No Limitations General Appearance: Alert, WD/WN, No Apparent Distress Eye Exam: Bilateral Eye: Normal Inspection Head Exam: Atraumatic Neck Exam: Non-Tender, Full Range of Motion Cardiovascular/Respiratory: Regular Rate, Rhythm, No M/R/G, Other (Tender chest wall right posterior axillary line at the level of the lower part of the scapula.) GI/Abdominal: Non-Tender Back Exam: Other (Thoracic and lumbar spine completely nontender) Extremities: Normal Inspection Course - Vital Signs Last Recorded V/S: Last Vital Signs Temp 36.1 C 03/24/18 10:03 Pulse 97 03/24/18 10:03 Resp 15 03/24/18 10:03 BP 177/97 H 03/24/18 10:25 Pulse Ox 97 03/24/18 10:03 - Orders/Labs/Meds Orders: Active Orders 24 hr Category Date Time Status Ribs 2V w Chest Rt [CR] Stat Exams 03/24/18 10:25 Taken - Radiology Interpretation Free Text/Narrative:: Right ribs and chest x-ray show no acute findings. - Re-Assessments/Exams Free Text/Narrative Re-Assessment/Exam: 03/24/18 11:06 Patient requested a chest binder. She has 1 that she said in the past worked very well but it is old and falling apart so we've supplied her with a new one. She can use that as needed. Departure - Departure Time of Disposition: 11:06 Disposition: Home, Self-Care 01 Condition: Fair Clinical Impression: Bruised ribs - Discharge Information Referrals: Marcus Cárdenas MD [Primary Care Provider] - Additional Instructions: Use your own [id number] pain medications as needed such as Tylenol. The chest binder may help but don't use it if it causes any difficulty breathing. Expect the soreness to last for at least a week - My Orders Last 24 Hours: My Active Orders 03/24/18 10:25 Ribs 2V w Chest Rt [CR] Stat - Assessment/Plan Last 24 Hours: My Active Orders 03/24/18 10:25 Ribs 2V w Chest Rt [CR] Stat
--- NOTE | 2018-03-26 08:46 | CR ---
Ribs 2V w Chest Rt CLINICAL HISTORY: Trauma, back pain FINDINGS: The heart is enlarged. Patient has a permanent cardiac pacer. There are atherosclerotic changes in the aorta.. No significant pleural effusion or pneumothorax is identified. Ribs are not optimally seen due to patient body habitus and some motion. No displaced rib fractures are identified IMPRESSION: Limited study. No displaced rib fractures are seen Lung jimenez are clear. Moderate cardiomegaly
== END 2018-03-24 11:18 | disposition home or self-care (01) ==
LOC: JP.ED 09:41
DX: S20.211A Contusion of right front wall of thorax, initial encounter (principal); W10.9XXA Fall (on) (from) unspecified stairs and steps, initial encounter
CPT/HCPCS: 71101-26-RT; 71101-RT; 99283; 99284

== ENCOUNTER 2019-04-28 07:52 | Emergency (ER) | payer MEDICARE, BC ==
--- NOTE | 2019-04-28 08:05 | EDM.PDOC ---
ED HPI GENERAL MEDICAL PROBLEM - General Chief Complaint: Laceration Stated Complaint: CUR ON RT WRIST Time Seen by Provider: 04/28/19 08:05 Source of Information: Reports: Patient History Limitations: Reports: No Limitations - History of Present Illness INITIAL COMMENTS - FREE TEXT/NARRATIVE: 88 years old female patient presented to the ER with a chief complaint of laceration of the left breast area. Her CAT scratch her . Bleeding is controlled. No other injury no other concern or complaint. Denies any fever. Denies any chest pain shortness breath. no yuri bite. Right Wrist Pain Score (Numeric/FACES): 2 - Related Data Allergies Allergy/AdvReac Type Severity Reaction Status Date / Time morphine Allergy Cannot Verified 04/28/19 08:06 Remember Sulfa (Sulfonamide Allergy Rash Verified 04/28/19 08:06 Antibiotics) Home Meds: Home Meds Bumetanide [Bumex] 1 mg PO BID 11/02/12 [History] Lisinopril 20 mg PO BID 11/02/12 [History] Lovastatin 40 mg PO BEDTIME 11/02/12 [History] Warfarin Sodium [Jantoven] 2.5 mg PO ASDIRECTED 11/02/12 [History] Warfarin Sliding Scale [Coumadin Sliding Scale] 5 mg PO ASDIRECTED 02/26/14 [ History] Clobetasol [Clobetasol 0.05%] 1 dose TOP BID 03/25/15 [History] Melatonin 1 tab PO BEDTIME 03/25/15 [History] Triamcinolone Acetonide [Triamcinolone Acetonide 0.1% Oint] 1 dose TOP BID 03/25 [History] carvediloL [Carvedilol] 6.25 mg PO BID 01/28/16 [History] Past Medical History HEENT History: Reports: Cataract, Impaired Vision Cardiovascular History: Reports: Afib, Cardiomyopathy, Heart Failure, High Cholesterol, Hypertension, Pacemaker, Other (See Below) Other Cardiovascular History: mitral valve disorders Respiratory History: Reports: SOB, Other (See Below) Other Respiratory History: dyspnea with exertion. pulmonary hypertension. 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: , Spontaneous Musculoskeletal History: Reports: Fracture, Gout, Osteoarthritis, Osteoporosis Psychiatric History: Reports: Panic Attack Endocrine/Metabolic History: Reports: Osteoporosis Hematologic History: Reports: Anticoagulation Therapy, Blood Transfusion(s) Oncologic (Cancer) History: Reports: Colon Dermatologic History: Reports: Eczema - Infectious Disease History Infectious Disease History: Reports: Chicken Pox, Measles, Mumps, Pertussis ( Whooping Cough), Rheumatic Fever, Rubella - Past Surgical History Head Surgeries/Procedures: Reports: None HEENT Surgical History: Reports: Cataract Surgery Cardiovascular Surgical History: Reports: Pacer Respiratory Surgical History: Reports: None GI Surgical History: Reports: Appendectomy, Colon, Colonoscopy, EGD, Other (See Below) Other GI Surgeries/Procedures: colon resection Female Surgical History: Reports: Section, D&C Endocrine Surgical History: Reports: None Musculoskeletal Surgical History: Reports: None Oncologic Surgical History: Reports: None Dermatological Surgical History: Reports: Skin Biopsy Social & Family History - Family History Family Medical History: Noncontributory - Caffeine Use Caffeine Use: Reports: Coffee Caffeine Use Comment: one cup/day - Living Situation & Occupation Living situation: Reports: Occupation: Retired (lives with of 66 years in own home [facility] [place]. has 4 children.) ED ROS GENERAL - Review of Systems Review Of Systems: Comprehensive ROS is negative, except as noted in HPI. ED EXAM, SKIN/RASH Exam: See Below Exam Limited By: No Limitations General Appearance: Alert, WD/WN, No Apparent Distress Ears: Normal External Exam, Normal Canal, Hearing Grossly Normal, Normal TMs Nose: Normal Inspection, Normal Mucosa, No Blood Throat/Mouth: Normal Inspection, Normal Lips, Normal Teeth, Normal Gums, Normal Oropharynx, Normal Voice, No Airway Compromise Head: Atraumatic, Normocephalic Neck: Normal Inspection, Supple, Non-Tender, Full Range of Motion Respiratory/Chest: No Respiratory Distress, Lungs Clear, Normal Breath Sounds, No Accessory Muscle Use, Chest Non-Tender Cardiovascular: Normal Peripheral Pulses, Regular Rate, Rhythm, No Edema, No Gallop, No JVD, No Murmur, No Rub GI/Abdominal: Normal Bowel Sounds, Soft, Non-Tender, No Organomegaly, No Distention, No Abnormal Bruit, No Mass Back Exam: Normal Inspection, Full Range of Motion, NT Extremities: Normal Inspection, Normal Range of Motion, Non-Tender, No Pedal Edema, Normal Capillary Refill, Other (15 mm left wrist laceration . Bleeding controlled. No foreign body. CMS intact.) Neurological: Alert, Oriented, CN II-XII Intact, Normal Cognition, Normal Gait, Normal Reflexes, No Motor/Sensory Deficits Psychiatric: Normal Affect, Normal Mood Lymphatic: No Adenopathy Course - Vital Signs Last Recorded V/S: Last Vital Signs Temp 36.1 C 04/28/19 08:09 Pulse 78 04/28/19 08:09 Resp 20 04/28/19 08:09 BP 187/87 H 04/28/19 08:09 Pulse Ox 96 04/28/19 08:09 - Orders/Labs/Meds Orders: Active Orders 24 hr Category Date Time Status Vaccines to be Administered [RC] PER UNIT ROUTINE Care 04/28/19 08:43 Active Meds: Medications Discontinued Medications Generic Name Dose Route Start Last Admin Trade Name Jose PRN Reason Stop Dose Admin Diphtheria/Tetanus/Acell Pertussis 0.5 ml 04/28/19 08:42 04/28/19 08:46 Adacel IM 04/28/19 08:43 0.5 ml .ONCE ONE Administration - Re-Assessments/Exams Free Text/Narrative Re-Assessment/Exam: 04/28/19 08:52 Patient was seen and examined shortly after arrival. Stable. Given a tetanus shot. Wound was irrigated with normal saline. Patient refuses stitches. Dermabond applied. Good approximation. Patient tolerates procedure well. No complication. Advised to keep it dry and clean. Close follow-up with PCP. Come back for any concern or any worsening symptom. I did consulted with infectious disease doctor neck [facility] regarding prophylactic antibiotic and concern about Scratch disease. He recommended Augmentin for prophylaxis to prevent infection in general and no concern about cat Scratch disease at this point unless she develops CSD at 2 or 4 weeks later. Patient agrees with the plan. Stable for discharge. 04/28/19 08:58 Departure - Departure Time of Disposition: 09:00 Disposition: Home, Self-Care 01 Condition: Good Clinical Impression: Laceration of left wrist - Discharge Information *PRESCRIPTION DRUG MONITORING PROGRAM REVIEWED*: Not Applicable *COPY OF PRESCRIPTION DRUG MONITORING REPORT IN PATIENT VICTORINA: Not Applicable Instructions: Laceration Care, Adult, [id number] Referrals: Marcus Cárdenas MD [Primary Care Provider] - Forms: ED Department Discharge Additional Instructions: Keep wound dry and clean Close follow-up with PCP in one week, sooner if symptom worsen Come back if symptom worsen or any concern Sepsis Event Note - Focused Exam Vital Signs: Vital Signs Temp Pulse Resp BP Pulse Ox 04/28/19 08:09 36.1 C 78 20 187/87 H 96 Date Exam was Performed: 04/28/19 Time Exam was Performed: 08:58 - My Orders Last 24 Hours: My Active Orders 04/28/19 08:43 Vaccines to be Administered [RC] PER UNIT ROUTINE - Assessment/Plan Last 24 Hours: My Active Orders 04/28/19 08:43 Vaccines to be Administered [RC] PER UNIT ROUTINE Plan: Keep wound dry and clean Close follow-up with PCP in one week, sooner if symptom worsen Come back if symptom worsen or any concern
[2019-04-28 08:12] VITALS: BP 187/87; PULSE 78
[2019-04-28] MEDS ORDERED: Diphtheria,Pertussis(Acell),Tetanus Vaccine 0.5 ML SDV IM ONE (08:42)
== END 2019-04-28 09:13 | disposition home or self-care (01) ==
LOC: JP.ED 07:52
DX: S61.512A Laceration without foreign body of left wrist, initial encounter (principal); Z23 Encounter for immunization; I50.9 Heart failure, unspecified; E78.00 Pure hypercholesterolemia, unspecified; I48.91 Unspecified atrial fibrillation; M10.9 Gout, unspecified; F41.0 Panic disorder [episodic paroxysmal anxiety]; Z88.5 Allergy status to narcotic agent; Z88.2 Allergy status to sulfonamides; Z79.899 Other long term (current) drug therapy; Z79.01 Long term (current) use of anticoagulants; W55.03XA Scratched by cat, initial encounter
CPT/HCPCS: 12001; 90471; 90715; 99282